=== PATIENT | male | born 1970 | race American Indian/Alaskan Native ===

== ENCOUNTER 2016-09-07 07:45 | Inpatient (IN) | payer MEDICAID ==
[2016-09-07 08:46] LABS: BASO % 0.3 % (0.0-2.0); EOS # 0.4 K/uL (0.0-0.7); EOS % 3.3 % (0.0-4.0); HEMATOCRIT 34.7 % (35.0-51.0); LYMPH # 2.8 K/uL (1.0-4.3); MEAN CELL VOLUME 91.2 fl (80.0-94.0); MEAN CORPUSCULAR HEMOGLOBIN 29.9 pg (27.0-31.0); MEAN CORPUSCULAR HGB CONC 32.8 g/dL (33.0-37.0); MEAN PLATELET VOLUME 9.1 fl (7.2-11.7); MONO # 1.6 K/uL (0.0-0.8); MONO % 12.4 % (0.0-10.0); NEUT # 7.8 K/uL (1.8-7.0); NRBC % 0.1 % (0.0-0.0); RED CELL DISTRIBUTION WIDTH 13.1 % (11.5-14.5); WHITE BLOOD COUNT 12.6 K/uL (4.8-10.8)
[2016-09-07 08:54] LABS: CALCIUM 8.9 mg/dL (8.4-10.2); POTASSIUM 3.3 MMOL/L (3.6-5.0)
--- NOTE | 2016-09-07 08:56 | ED PDOC ---
HPI: Chest Pain Time Seen by Provider: 09/07/16 08:08 Chief Complaint (Nursing): Chest Pain Chief Complaint (Provider): Chest Pain History Per: Patient History/Exam Limitations: no limitations Onset/Duration Of Symptoms: Days (3 days), Intermittent Episodes (initially intermittent, constant sine yesterday) Current Symptoms Are (Timing): Still Present Severity: Moderate Associated Symptoms: Dyspnea. denies: Diaphoresis, Other (denies fever, cough) Exacerbating Factors: Movement Additional Complaint(s): Nader Pedraza is a 46 year old male, with a past medical history of hypertension, who presents to the emergency department for the evaluation of chest pain, that was initially intermittent, but has been constant since yesterday, that the patient has been experiencing for the past 3 days. Exacerbating factor includes ambulation. Associated shortness of breath is persistent with chest pain. Denies a fever, cough, or chills. PMD: none specified Past Medical History Reviewed: Historical Data, Nursing Documentation, Vital Signs Vital Signs: Last Vital Signs Temp 98.0 F 09/07/16 10:18 Pulse 78 09/07/16 10:18 Resp 16 09/07/16 10:18 BP 142/81 09/07/16 10:18 Pulse Ox 100 09/07/16 10:18 - Medical History PMH: HTN - Surgical History Surgical History: No Surg Hx - Family History Family History: States: No Known Family Hx - Social History Current smoker - smoking cessation education provided: No Ex-Smoker (has not smoked in the last 12 months): Yes Alcohol: None Drugs: Denies - Home Medications Home Medications: Ambulatory Orders Medication Instructions Recorded Enalapril Maleate [Vasotec] 25 mg PO DAILY 09/07/16 Metoprolol Tartrate [Lopressor] 100 mg PO DAILY 09/07/16 amLODIPine [Norvasc] 10 mg PO DAILY 09/07/16 hydroCHLOROthiazide [Hydrodiuril] 25 mg PO DAILY 09/07/16 - Allergies Allergies/Adverse Reactions: Allergies Allergy/AdvReac Type Severity Reaction Status Date / Time No Known Allergies Allergy Verified 09/07/16 07:58 Review of Systems ROS Statement: Except As Marked, All Systems Reviewed And Found Negative Constitutional: Negative for: Fever, Chills Cardiovascular: Positive for: Chest Pain Respiratory: Positive for: Shortness of Breath. Negative for: Cough Physical Exam - Reviewed Nursing Documentation Reviewed: Yes Vital Signs Reviewed: Yes - Physical Exam Appears: Positive for: Non-toxic, No Acute Distress Head Exam: Positive for: ATRAUMATIC, NORMOCEPHALIC Skin: Positive for: Normal Color, Warm, Dry Neck: Positive for: Normal, Painless ROM, Supple Cardiovascular/Chest: Positive for: Regular Rate, Rhythm. Negative for: Murmur Respiratory: Positive for: Decreased Breath Sounds (absent breath sounds to right lung), Respiratory Distress. Negative for: Normal Breath Sounds ( tachypnic) Back: Positive for: Normal Inspection. Negative for: L CVA Tenderness, R CVA Tenderness Extremity: Positive for: Normal ROM. Negative for: Tenderness, Swelling Neurologic/Psych: Positive for: Alert, Oriented - Laboratory Results Result Diagrams: 09/07/16 08:15 09/07/16 08:15 - ECG O2 Sat by Pulse Oximetry: 93 (RA) Pulse Ox Interpretation: Normal Medical Decision Making Medical Decision Makin:08 Initial Impression: likely pneumothorax, stable vital signs, not suspicious of tension pneumothorax, likely spontaneous pneumothorax Initial Plan: * Chest X-Ray * Type and Screen * CBC * BMP * BNP * Troponin I * PT/PTT * UA * Urine Drug Screen * Reevaluation 08:55 Provider consulted with ophthalmology surgical technician about pneumothorax. 930AM: Pt. admitted to Dr. Scott 1020AM: Pt.'s xray shows re-expansion of lung, patient tolerated procedure well , VSS. Will go to echo from ER and then telemetry. Scribe Attestation: Documented by Sunny Weller, acting as a scribe for Oj Rosado MD. Provider Scribe Attestation: All medical record entries made by the Scribe were at my direction and personally dictated by me. I have reviewed the chart and agree that the record accurately reflects my personal performance of the history, physical exam, medical decision making, and the department course for this patient. I have also personally directed, reviewed, and agree with the discharge instructions and disposition. Disposition - Clinical Impression Clinical Impression: Pneumothorax, Acute kidney injury - Disposition Disposition Time: 09:30 Condition: STABLE
[2016-09-07 09:04] LABS: PARTIAL THROMBOPLASTIN TIME 40.6 SECONDS (23.3-32.5)
[2016-09-07] MEDS ORDERED: Sodium Chloride 0.9% 1,000 ML IV STA (09:12)
[2016-09-07 09:13] LABS: TROPONIN I 0.018 ng/mL (0.00-0.120)
[2016-09-07 09:53] LABS: RBC URINE 1 /hpf (0-3); URINE BILIRUBIN NEGATIVE (NEGATIVE); URINE BLOOD NEGATIVE (NEGATIVE); URINE COLOR YELLOW (YELLOW); URINE GLUCOSE (UA) >=500 mg/dL (Normal); URINE KETONE NEGATIVE (NEGATIVE); URINE LEUKOCYTE ESTERASE NEG Leu/uL (Negative); URINE PROTEIN NEGATIVE (NEGATIVE); URINE UROBILINOGEN 0.2-1.0 mg/dL (0.2-1.0); WBC URINE < 1 /hpf (0-5)
--- NOTE | 2016-09-07 10:06 | RAD ---
PROCEDURE: CHEST RADIOGRAPH, 1 VIEW HISTORY: PTX likely on R COMPARISON: None available. FINDINGS: LUNGS: The left lung is clear. PLEURA: There is a large right pneumothorax with compressive atelectasis of the right lung. CARDIOVASCULAR: Normal. OSSEOUS STRUCTURES: No significant abnormalities. VISUALIZED UPPER ABDOMEN: Normal. OTHER FINDINGS: None. IMPRESSION: Large right pneumothorax. Clear left lung.
[2016-09-07] MEDS ORDERED: Potassium Chloride 20 mEq ER Tab PO ONE (11:47)
[2016-09-07 11:57] LABS: ABG ALLEN TEST YES; ARTERIAL BLOOD GAS HCO3 25.6 mmol/L (21-28); ARTERIAL BLOOD GAS O2 CAPACITY 16.1 mL/dL (16-24); ARTERIAL BLOOD GAS O2 CONTENT 15.1 ML/dL (15-23); ARTERIAL BLOOD GAS PH 7.38 (7.35-7.45); ARTERIAL BLOOD GAS PO2 62 mm/Hg (80-100); ARTERIAL BLOOD HGB O2 SAT 89.6 % (95.0-98.0); HHB 5.7 % (0.0-5.0); METHEMOGLOBIN 1.7 % (0.0-3.0)
--- NOTE | 2016-09-07 12:11 | RAD ---
HISTORY: s/p chest tube placement COMPARISON: 09/07/2016 at 8:40 a.m. FINDINGS: There is interval placement of right chest tube with its tip in the medial apex. LUNGS: There is interval re-expansion of the right lung with consolidation in most of the right lung. The left lung is clear. PLEURA: No significant pleural effusion identified. No definite evidence of right pneumothorax. CARDIOVASCULAR: Normal. OSSEOUS STRUCTURES: No significant abnormalities. VISUALIZED UPPER ABDOMEN: Normal. OTHER FINDINGS: None. IMPRESSION: 1. Status post right chest tube placement, no definite evidence of residual pneumothorax. 2. Interval re-expansion of right lung which demonstrates diffuse consolidation.
[2016-09-07] MEDS ORDERED: Tuberculin 5 Units/0.1 ml Inj ID ONE (12:12)
[2016-09-07 12:14] LABS: ALB/GLOB RATIO 1.2 (1.0-2.1); BILIRUBIN,TOTAL 0.2 mg/dl (0.2-1.3); TOTAL PROTEIN 6.9 G/DL (6.3-8.2)
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
[2016-09-07] MEDS ORDERED: Sodium Chloride 3% for Inhalation 4 ML VIAL.NEB IH PRN (12:22)
--- NOTE | 2016-09-07 12:29 | CARD ---
APPROVED REPORT EXAM: Two-dimensional and M-mode echocardiogram with Doppler and color Doppler. Other Information Quality : GoodRhythm : NSR Technically limited study due to PT HAS CHEST TUBES INDICATION Chest Pain 2D DIMENSIONS IVSd1.41 (0.7-1.1cm)LVDd4.05 (3.9-5.9cm) LVOT Diameter2.15 (1.8-2.4cm)PWd1.19 (0.7-1.1cm) IVSs1.55 (0.8-1.2cm)LVDs2.30 (2.5-4.0cm) FS (%) 43.2 %PWs2.05 (0.8-1.2cm) M-Mode DIMENSIONS Left Atrium (MM)3.82 (2.5-4.0cm)IVSd1.29 (0.7-1.1cm) Aortic Root3.06 (2.2-3.7cm)LVDd4.24 (4.0-5.6cm) Aortic Cusp Exc.1.94 (1.5-2.0cm)PWd1.38 (0.7-1.1cm) IVSs1.79 cmFS (%) 47 % LVDs2.26 (2.0-3.8cm)PWs2.26 cm Mitral Valve MV E Mswwiwle93.8cm/sMV DECEL [id number] A Gfcivdmi87.1cm/s MV [id number]/A ratio1.3MVA (PHT)3.36cm2 TDI Lateral E' Peak V13.44cm/sMedial E' Peak V7.66cm/sE/Lateral E'5.7 E/Medial E'10.0 Tricuspid Valve TR Peak [id number]/sRAP [id number] Peak Gr.25mmHg [id number] LEFT VENTRICLE The left ventricle is normal size. There is mild concentric left ventricular hypertrophy. Left ventricle systolic function is normal. The Ejection Fraction is 65-70%. There is normal LV segmental wall motion. The left ventricular diastolic function is normal. RIGHT VENTRICLE The right ventricle is normal size. There is normal right ventricular wall thickness. The right ventricular systolic function is normal. ATRIA The left atrium size is normal. The right atrium size is normal. AORTIC VALVE The aortic valve is normal in structure and function. No aortic regurgitation is present. There is no aortic valvular stenosis. MITRAL VALVE The mitral valve is normal in structure and function. There is no evidence of mitral valve prolapse. There is no mitral valve stenosis. There is no mitral valve regurgitation noted. TRICUSPID VALVE The tricuspid valve is normal in structure. There is mild tricuspid regurgitation. Right ventricular systolic pressure is estimated at 36 mmHg. There is mild pulmonary hypertension. PULMONIC VALVE The pulmonary valve is normal in structure and function. There is no pulmonic valvular regurgitation. GREAT VESSELS The aortic root is normal in size. The IVC was not visualized. PERICARDIAL EFFUSION The pericardium appears normal. <Conclusion> The left ventricle is normal size. There is mild concentric left ventricular hypertrophy. There is normal LV segmental wall motion. Left ventricle systolic function is normal. The Ejection Fraction is 65-70%. The left ventricular diastolic function is normal.
--- NOTE | 2016-09-07 13:23 | CT ---
PROCEDURE: CT Chest without contrast HISTORY: Spontaneous pneumothorax COMPARISON: Plain radiographs performed earlier the same day. TECHNIQUE: Contiguous axial images were obtained through the chest without intravenous contrast enhancement. Sagittal and coronal reconstructions were performed. Radiation dose (DLP): 552.33 mGy-cm. This CT exam was performed using one or more of the following dose reduction techniques: Automated exposure control, adjustment of the mA and/or kV according to patient size, and/or use of iterative reconstruction technique. FINDINGS: LUNGS: There is interval placement of right chest tube with its tip in the medial apex. There is interval near complete resolution of the large right pneumothorax with residual minimal apical pneumothorax. There are bilateral apical subpleural blebs, larger in the right anterior apex. There is ground-glass attenuation in the right upper lobe and middle lobe and to a lesser extent in the lower lobes with interlobular septal thickening. There is also more confluent superimposed airspace disease in the posterior segment of the right upper lobe and in the right lower lobe. There is bilateral lower lobe subsegmental atelectasis. There is no consolidation in the left lung. MEDIASTINUM: The aorta is normal in caliber. The heart is normal in size. There is no pericardial effusion. There are no enlarged mediastinal lymph nodes. Subcentimeter mediastinal lymph nodes are likely reactive in etiology. PLEURA: There is trace right pleural effusion. No large left pleural effusion. BONES: No fracture. No destructive lesion. The visualized bones are within normal limits for the patient's age. UPPER ABDOMEN: Grossly unremarkable. OTHER FINDINGS: None. IMPRESSION: 1. Interval placement of right chest tube and resolution of large right pneumothorax with residual small apical pneumothorax. The tip of the chest tube is positioned in the medial apex. Biapical subpleural blebs, larger on the right. 2. Interval re-expansion of the right lung with diffuse ground-glass attenuation and interlobular septal thickening with superimposed confluent airspace disease in the posterior segment of the right upper lobe and in the right lower lobe. Findings could be related to pneumonia superimposed on nonspecific infection/ inflammation, reexpansion alveolar pulmonary edema or aspiration pneumonitis. Short-term interval follow-up after medical management is advised.
[2016-09-07] MEDS: Sodium Chloride 0.9% 1,000 ML IV SCH ×2 (13:40→22:16)
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
[2016-09-07] MEDS ORDERED: Pneumococcal 23-Valent Vaccine IM ONE (16:44)
[2016-09-07] MEDS: Ciprofloxacin 200mg/100ml D5W 100 ML IVPB SCH (22:15)
[2016-09-08 07:02] LABS: HEMATOCRIT 34.7 % (35.0-51.0); MEAN CELL VOLUME 92.2 fl (80.0-94.0); MEAN CORPUSCULAR HEMOGLOBIN 29.6 pg (27.0-31.0); MEAN CORPUSCULAR HGB CONC 32.1 g/dL (33.0-37.0); RED CELL DISTRIBUTION WIDTH 13.1 % (11.5-14.5); WHITE BLOOD COUNT 17.9 K/uL (4.8-10.8)
[2016-09-08 07:55] LABS: ALB/GLOB RATIO 1.1 (1.0-2.1); ALKALINE PHOSPHATASE 69 U/L (38-126); ALT/SGPT 26 U/L (21-72); AST/SGOT 113 U/L (17-59); BILIRUBIN,TOTAL 0.7 mg/dl (0.2-1.3); BLOOD UREA NITROGEN 20 mg/dl (9-20); CALCIUM 8.3 mg/dL (8.4-10.2); CARBON DIOXIDE 25 mmol/L (22-30); CHLORIDE 106 mmol/L (98-107); GFR AFRICAN-AMERICAN 56; GLUCOSE,RANDOM 89 mg/dL (75-110); POTASSIUM 4.1 MMOL/L (3.6-5.0); SODIUM 139 mmol/l (132-148); TOTAL PROTEIN 5.8 G/DL (6.3-8.2)
[2016-09-08] MEDS: Ciprofloxacin 200mg/100ml D5W 100 ML IVPB SCH ×2 (09:11→21:58)
--- NOTE | 2016-09-08 14:04 | CP.PCM.PN ---
Subjective - Date & Time of Evaluation Date of Evaluation: 09/08/16 Time of Evaluation: 10:50 - Subjective Subjective: S/P Pneumothorax. No A/D, minimal R chest wall pain. Objective - Vital Signs/Intake and Output Vital Signs (last 24 hours): Temp Pulse Resp BP Pulse Ox 98.4 F 57 L 14 127/69 100 09/08/16 11:45 09/08/16 11:45 09/08/16 11:45 09/08/16 11:45 09/08/16 11:45 Intake and Output: 09/08/16 09/08/16 06:59 18:59 Intake Total 1200 Output Total 1210 800 Balance -10 -800 - Medications Medications: Current Medications Amlodipine Besylate (Norvasc) 10 mg PO DAILY [facility] Last Admin: 09/08/16 09:16 Dose: 10 mg Enalapril Maleate (Vasotec) 20 mg PO DAILY [facility] Last Admin: 09/08/16 09:15 Dose: 20 mg Hydrochlorothiazide (Hydrodiuril) 25 mg PO DAILY [facility] Last Admin: 09/08/16 09:15 Dose: 25 mg Ciprofloxacin (Cipro 200mg/100ml D5w) 100 mls @ 100 mls/hr IVPB Q12 [facility] Last Admin: 09/08/16 09:11 Dose: 100 mls/hr Vancomycin HCl 1 gm/ Sodium (Chloride) 250 mls @ 166.667 mls/hr IVPB DAILY [facility] Last Admin: 09/08/16 09:59 Dose: 166.667 mls/hr Piperacillin Sod/Tazobactam (Sod 2.25 gm/ Sodium Chloride) 100 mls @ 100 mls/ hr IVPB Q6 [facility] Last Admin: 09/08/16 11:22 Dose: 100 mls/hr Metoprolol Tartrate (Lopressor) 100 mg PO DAILY [facility] Last Admin: 09/08/16 09:15 Dose: 100 mg Morphine Sulfate (Morphine) 4 mg IVP Q3H PRN PRN Reason: Pain, moderate (4-7) Last Admin: 09/08/16 09:12 Dose: 4 mg - Labs Labs: 09/08/16 05:00 09/08/16 05:00 PT 16.0 SECONDS (9.6-11.2) H 09/07/16 08:15 INR 1.54 (0.92-1.08) H 09/07/16 08:15 APTT 40.6 SECONDS (23.3-32.5) H 09/07/16 08:15 - Constitutional Appears: No Acute Distress - Head Exam Head Exam: NORMAL INSPECTION - Eye Exam Eye Exam: PERRL - ENT Exam ENT Exam: Normal Oropharynx - Neck Exam Neck Exam: Normal Inspection - Respiratory Exam Respiratory Exam: Decreased Breath Sounds (R base) Additional comments: R side chest tube - Cardiovascular Exam Cardiovascular Exam: REGULAR RHYTHM - GI/Abdominal Exam GI & Abdominal Exam: Soft, Normal Bowel Sounds - Extremities Exam Extremities Exam: Normal Inspection - Back Exam Back Exam: NORMAL INSPECTION - Neurological Exam Neurological Exam: Alert, Oriented x3. absent: Motor Sensory Deficit - Skin Skin Exam: Warm Assessment and Plan (1) Primary spontaneous pneumothorax Status: Acute (2) PNA (pneumonia) Status: Acute (3) HTN (hypertension) Status: Chronic - Assessment and Plan (Free Text) Plan: Continue NC 2-1/2 L/m, continue Morphine, Lopressor, vasotec, Norvasc, Zosyn, Vanco and rest of Tx
[2016-09-08] MEDS: Sodium Chloride 0.9% 1,000 ML IV SCH (14:44)
--- NOTE | 2016-09-08 16:35 | CP.PCM.PN ---
Subjective - Date & Time of Evaluation Date of Evaluation: 09/08/16 Time of Evaluation: 10:10 - Subjective Subjective: CT Surgery Pt S&E, YULYO. Sats @ 100 on 4L NC. Says he is breathing much better. C/O pain at CT site. Objective - Vital Signs/Intake and Output Vital Signs (last 24 hours): Temp Pulse Resp BP Pulse Ox 98.4 F 72 22 100/54 L 97 09/08/16 11:45 09/08/16 14:05 09/08/16 14:05 09/08/16 14:05 09/08/16 14:05 Intake and Output: 09/08/16 09/08/16 06:59 18:59 Intake Total 1200 220 Output Total 1210 800 Balance -10 -580 - Medications Medications: Current Medications Amlodipine Besylate (Norvasc) 10 mg PO DAILY [facility] Last Admin: 09/08/16 09:16 Dose: 10 mg Enalapril Maleate (Vasotec) 20 mg PO DAILY [facility] Last Admin: 09/08/16 09:15 Dose: 20 mg Hydrochlorothiazide (Hydrodiuril) 25 mg PO DAILY [facility] Last Admin: 09/08/16 09:15 Dose: 25 mg Ciprofloxacin (Cipro 200mg/100ml D5w) 100 mls @ 100 mls/hr IVPB Q12 [facility] Last Admin: 09/08/16 09:11 Dose: 100 mls/hr Vancomycin HCl 1 gm/ Sodium (Chloride) 250 mls @ 166.667 mls/hr IVPB DAILY [facility] Last Admin: 09/08/16 09:59 Dose: 166.667 mls/hr Piperacillin Sod/Tazobactam (Sod 2.25 gm/ Sodium Chloride) 100 mls @ 100 mls/ hr IVPB Q6 [facility] Last Admin: 09/08/16 15:39 Dose: 100 mls/hr Metoprolol Tartrate (Lopressor) 50 mg PO DAILY [facility] Morphine Sulfate (Morphine) 4 mg IVP Q3H PRN PRN Reason: Pain, moderate (4-7) Last Admin: 09/08/16 14:55 Dose: 4 mg - Labs Labs: 09/08/16 05:00 09/08/16 05:00 PT 16.0 SECONDS (9.6-11.2) H 09/07/16 08:15 INR 1.54 (0.92-1.08) H 09/07/16 08:15 APTT 40.6 SECONDS (23.3-32.5) H 09/07/16 08:15 - Constitutional Appears: No Acute Distress, Chronically Ill - Head Exam Head Exam: ATRAUMATIC, NORMOCEPHALIC - Eye Exam Eye Exam: EOMI. absent: Scleral icterus - Respiratory Exam Respiratory Exam: NORMAL BREATHING PATTERN. absent: Respiratory Distress Additional comments: CT in place draining serous fluid - Cardiovascular Exam Cardiovascular Exam: RRR, +S1, +S2 - GI/Abdominal Exam GI & Abdominal Exam: Soft. absent: Distended, Tenderness - Neurological Exam Neurological Exam: Alert, Awake - Skin Skin Exam: Dry, Warm Assessment and Plan - Assessment and Plan (Free Text) Assessment: 46M with R pneumothorax s/p chest tube placement Plan: Daily CXR Monitor output from CT Consider CT Chest with contrast on saturday D/W Dr. Doc Shaikh PGY3
--- NOTE | 2016-09-09 08:40 | CP.PCM.PN ---
Subjective - Date & Time of Evaluation Date of Evaluation: 09/09/16 Time of Evaluation: 08:38 - Subjective Subjective: Thoracic Surgery - Dr. Roach Pt S&E. NATI. Pt has mild pain from the R chest tube, otherwise denies any complaints. He has no SOB, F/C, N/V. He has been OOB ambulating within the room, working with incentive spirometer. R CT to wall suction w/ ~200cc serous drainage. no airleak. Objective - Vital Signs/Intake and Output Vital Signs (last 24 hours): Temp Pulse Resp BP Pulse Ox 98.3 F 65 20 157/74 H 98 09/09/16 08:13 09/09/16 08:13 09/09/16 08:13 09/09/16 08:13 09/09/16 08:13 - Medications Medications: Current Medications Amlodipine Besylate (Norvasc) 10 mg PO DAILY [facility] Last Admin: 09/08/16 09:16 Dose: 10 mg Enalapril Maleate (Vasotec) 20 mg PO DAILY [facility] Last Admin: 09/08/16 09:15 Dose: 20 mg Hydrochlorothiazide (Hydrodiuril) 25 mg PO DAILY [facility] Last Admin: 09/08/16 09:15 Dose: 25 mg Ciprofloxacin (Cipro 200mg/100ml D5w) 100 mls @ 100 mls/hr IVPB Q12 [facility] Last Admin: 09/08/16 21:58 Dose: 100 mls/hr Vancomycin HCl 1 gm/ Sodium (Chloride) 250 mls @ 166.667 mls/hr IVPB DAILY [facility] Last Admin: 09/08/16 09:59 Dose: 166.667 mls/hr Piperacillin Sod/Tazobactam (Sod 2.25 gm/ Sodium Chloride) 100 mls @ 100 mls/ hr IVPB Q6 [facility] Last Admin: 09/09/16 04:12 Dose: 100 mls/hr Metoprolol Tartrate (Lopressor) 50 mg PO DAILY [facility] Morphine Sulfate (Morphine) 4 mg IVP Q3H PRN PRN Reason: Pain, moderate (4-7) Last Admin: 09/09/16 03:06 Dose: 4 mg - Labs Labs: 09/08/16 05:00 09/08/16 05:00 PT 16.0 SECONDS (9.6-11.2) H 09/07/16 08:15 INR 1.54 (0.92-1.08) H 09/07/16 08:15 APTT 40.6 SECONDS (23.3-32.5) H 09/07/16 08:15 - Constitutional Appears: No Acute Distress - Head Exam Head Exam: ATRAUMATIC, NORMAL INSPECTION, NORMOCEPHALIC - Respiratory Exam Respiratory Exam: NORMAL BREATHING PATTERN. absent: Respiratory Distress Additional comments: R CT in place to low cont. suction, no airleak - Cardiovascular Exam Cardiovascular Exam: REGULAR RHYTHM - Neurological Exam Neurological Exam: Alert, Oriented x3 - Psychiatric Exam Psychiatric exam: Normal Affect, Normal Mood - Skin Skin Exam: Dry, Intact Assessment and Plan - Assessment and Plan (Free Text) Assessment: 46M with R pneumothorax s/p chest tube placement Plan: F/U CXR Continue CT to low continuous suction F/U Labs, Cr Poss. CT Chest w/ contrast on Saturday D/W Dr. Doc Lima PGY2
[2016-09-09] MEDS: Ciprofloxacin 200mg/100ml D5W 100 ML IVPB SCH ×2 (09:49→20:27)
--- NOTE | 2016-09-09 09:50 | RAD ---
PROCEDURE: CHEST RADIOGRAPH, 1 VIEW HISTORY: Comparison COMPARISON: None available. FINDINGS: LUNGS: Bilateral interstitial infiltrates.. PLEURA: No pneumothorax or pleural fluid seen. CARDIOVASCULAR: Normal. OSSEOUS STRUCTURES: No significant abnormalities. VISUALIZED UPPER ABDOMEN: Normal. OTHER FINDINGS: None. IMPRESSION: Bilateral interstitial infiltrates..
--- NOTE | 2016-09-09 16:43 | CP.PCM.PN ---
Subjective - Date & Time of Evaluation Date of Evaluation: 09/09/16 Time of Evaluation: 10:30 - Subjective Subjective: F/U R Pneumothorax. No SOB, minimal pain in the area of chest tube insertion, no cough, no chest congestion. Objective - Vital Signs/Intake and Output Vital Signs (last 24 hours): Temp Pulse Resp BP Pulse Ox 98.6 F 57 L 18 134/77 100 09/09/16 16:00 09/09/16 16:00 09/09/16 16:00 09/09/16 16:00 09/09/16 16:00 - Medications Medications: Current Medications Amlodipine Besylate (Norvasc) 10 mg PO DAILY [facility] Last Admin: 09/09/16 09:50 Dose: 10 mg Enalapril Maleate (Vasotec) 20 mg PO DAILY [facility] Last Admin: 09/09/16 09:51 Dose: 20 mg Hydrochlorothiazide (Hydrodiuril) 25 mg PO DAILY [facility] Last Admin: 09/09/16 09:50 Dose: 25 mg Ciprofloxacin (Cipro 200mg/100ml D5w) 100 mls @ 100 mls/hr IVPB Q12 [facility] Last Admin: 09/09/16 09:49 Dose: 100 mls/hr Vancomycin HCl 1 gm/ Sodium (Chloride) 250 mls @ 166.667 mls/hr IVPB DAILY [facility] Last Admin: 09/09/16 09:52 Dose: 166.667 mls/hr Piperacillin Sod/Tazobactam (Sod 2.25 gm/ Sodium Chloride) 100 mls @ 100 mls/ hr IVPB Q6 [facility] Last Admin: 09/09/16 15:21 Dose: 100 mls/hr Metoprolol Tartrate (Lopressor) 50 mg PO DAILY [facility] Last Admin: 09/09/16 09:50 Dose: 50 mg Morphine Sulfate (Morphine) 4 mg IVP Q3H PRN PRN Reason: Pain, moderate (4-7) Last Admin: 09/09/16 15:21 Dose: 4 mg - Labs Labs: 09/08/16 05:00 09/08/16 05:00 PT 16.0 SECONDS (9.6-11.2) H 09/07/16 08:15 INR 1.54 (0.92-1.08) H 09/07/16 08:15 APTT 40.6 SECONDS (23.3-32.5) H 09/07/16 08:15 - Constitutional Appears: No Acute Distress - Head Exam Head Exam: NORMAL INSPECTION - Eye Exam Eye Exam: PERRL - ENT Exam ENT Exam: Normal Oropharynx - Neck Exam Neck Exam: Normal Inspection - Respiratory Exam Respiratory Exam: Decreased Breath Sounds (R base) Additional comments: R chest tube with minimal tenderness in the area. Chest tube drainage 50cc. - GI/Abdominal Exam GI & Abdominal Exam: Soft, Normal Bowel Sounds - Extremities Exam Extremities Exam: Normal Inspection - Back Exam Back Exam: NORMAL INSPECTION - Neurological Exam Neurological Exam: Alert, Oriented x3. absent: Motor Sensory Deficit - Psychiatric Exam Psychiatric exam: Normal Mood - Skin Skin Exam: Warm Assessment and Plan (1) Primary spontaneous pneumothorax Status: Acute (2) PNA (pneumonia) Status: Acute (3) HTN (hypertension) Status: Chronic - Assessment and Plan (Free Text) Plan: Continue Zosyn, Vanco, Morphine, Lopressor, Vasotec, Norvasc and rest of Tx, f/ u ID consult.
[2016-09-10] MEDS: Ciprofloxacin 200mg/100ml D5W 100 ML IVPB SCH (08:38)
--- NOTE | 2016-09-10 09:14 | CP.PCM.PN ---
Subjective - Date & Time of Evaluation Date of Evaluation: 09/10/16 Time of Evaluation: 09:11 - Subjective Subjective: This is a progress note for Dr. Roach- thoracic surgery: Pt [facility]IAN. Pt has mild pain from the R chest tube, otherwise denies any complaints. He has no SOB, F/C, N/V. He has been OOB ambulating within the room, working with incentive spirometer. R CT to wall suction w/ serous drainage. no airleak. Objective - Vital Signs/Intake and Output Vital Signs (last 24 hours): Temp Pulse Resp BP Pulse Ox 98.1 F 66 18 132/75 100 09/10/16 07:54 09/10/16 08:38 09/10/16 07:54 09/10/16 08:38 09/10/16 07:54 - Medications Medications: Current Medications Amlodipine Besylate (Norvasc) 10 mg PO DAILY [facility] Last Admin: 09/10/16 08:37 Dose: 10 mg Enalapril Maleate (Vasotec) 20 mg PO DAILY [facility] Last Admin: 09/10/16 08:37 Dose: 20 mg Hydrochlorothiazide (Hydrodiuril) 25 mg PO DAILY [facility] Last Admin: 09/10/16 08:37 Dose: 25 mg Ciprofloxacin (Cipro 200mg/100ml D5w) 100 mls @ 100 mls/hr IVPB Q12 [facility] Last Admin: 09/10/16 08:38 Dose: 100 mls/hr Vancomycin HCl 1 gm/ Sodium (Chloride) 250 mls @ 166.667 mls/hr IVPB DAILY [facility] Last Admin: 09/10/16 08:46 Dose: 166.667 mls/hr Piperacillin Sod/Tazobactam (Sod 2.25 gm/ Sodium Chloride) 100 mls @ 100 mls/ hr IVPB Q6 [facility] Last Admin: 09/10/16 04:37 Dose: 100 mls/hr Metoprolol Tartrate (Lopressor) 50 mg PO DAILY [facility] Last Admin: 09/10/16 08:38 Dose: 50 mg Morphine Sulfate (Morphine) 4 mg IVP Q3H PRN PRN Reason: Pain, moderate (4-7) Last Admin: 09/09/16 20:37 Dose: 4 mg - Labs Labs: 09/08/16 05:00 09/08/16 05:00 PT 16.0 SECONDS (9.6-11.2) H 09/07/16 08:15 INR 1.54 (0.92-1.08) H 09/07/16 08:15 APTT 40.6 SECONDS (23.3-32.5) H 09/07/16 08:15 - Constitutional Appears: Well, Non-toxic, No Acute Distress - Respiratory Exam Additional comments: R CT in place to low cont. suction, no airleak Assessment and Plan - Assessment and Plan (Free Text) Assessment: 46M with R pneumothorax s/p chest tube placement Plan: F/U CXR Continue CT to low continuous suction F/U Labs, Cr IVF fluids-hydrate today possible CT w/contrast of chest tomorrow, if kidneys are not better tomorrow, will get noncontrast CT D/W Dr. Roach
[2016-09-10 10:17] LABS: HEMATOCRIT 40.7 % (35.0-51.0); MEAN CELL VOLUME 90.8 fl (80.0-94.0); MEAN CORPUSCULAR HEMOGLOBIN 29.9 pg (27.0-31.0); MEAN CORPUSCULAR HGB CONC 32.9 g/dL (33.0-37.0); RED CELL DISTRIBUTION WIDTH 12.7 % (11.5-14.5); WHITE BLOOD COUNT 19.8 K/uL (4.8-10.8)
[2016-09-10 10:52] LABS: POTASSIUM 3.6 MMOL/L (3.6-5.0)
[2016-09-10 10:54] LABS: ALB/GLOB RATIO 1.2 (1.0-2.1); BILIRUBIN,TOTAL 0.9 mg/dl (0.2-1.3); CALCIUM 9.6 mg/dL (8.4-10.2); TOTAL PROTEIN 7.9 G/DL (6.3-8.2)
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
[2016-09-10] MEDS ORDERED: Sodium Chloride 3% for Inhalation 4 ML VIAL.NEB IH PRN (11:52)
[2016-09-10] MEDS: Moxifloxacin IV 400mg/250ml NS 400 MG/250 ML BAG IVPB SCH (13:05)
[2016-09-10] MEDS: Sodium Chloride 0.9% 500 ML IV SCH ×3 (13:45→23:00)
--- NOTE | 2016-09-10 15:04 | RAD ---
PROCEDURE: CHEST RADIOGRAPH, 1 VIEW HISTORY: Comparison COMPARISON: 09/08/2016 FINDINGS: LUNGS: Clear. PLEURA: No pneumothorax or pleural fluid seen. CARDIOVASCULAR: Normal. OSSEOUS STRUCTURES: No significant abnormalities. VISUALIZED UPPER ABDOMEN: Normal. OTHER FINDINGS: Right chest tube in place. IMPRESSION: No evidence of pneumothorax. Right chest tube in place.
--- NOTE | 2016-09-10 16:13 | CP.PCM.PN ---
Subjective - Date & Time of Evaluation Date of Evaluation: 09/10/16 Time of Evaluation: 10:00 - Subjective Subjective: F/U R Pneumothorax. No SOB, breathing well, no chest congestion, minimal pain in R chest insertion tube area. Objective - Vital Signs/Intake and Output Vital Signs (last 24 hours): Temp Pulse Resp BP Pulse Ox 98.2 F 63 20 146/74 99 09/10/16 15:42 09/10/16 15:42 09/10/16 15:42 09/10/16 15:42 09/10/16 15:42 - Medications Medications: Current Medications Amlodipine Besylate (Norvasc) 10 mg PO DAILY [facility] Last Admin: 09/10/16 08:37 Dose: 10 mg Enalapril Maleate (Vasotec) 20 mg PO DAILY [facility] Last Admin: 09/10/16 08:37 Dose: 20 mg Hydrochlorothiazide (Hydrodiuril) 25 mg PO DAILY [facility] Last Admin: 09/10/16 08:37 Dose: 25 mg Vancomycin HCl 1 gm/ Sodium (Chloride) 250 mls @ 166.667 mls/hr IVPB DAILY [facility] Last Admin: 09/10/16 08:46 Dose: 166.667 mls/hr Piperacillin Sod/Tazobactam (Sod 2.25 gm/ Sodium Chloride) 100 mls @ 100 mls/ hr IVPB Q6 [facility] Last Admin: 09/10/16 09:39 Dose: 100 mls/hr Moxifloxacin HCl (Avelox Iv 400mg/250ml Ns) 400 mg in 250 mls @ 250 mls/hr IVPB DAILY [facility] Last Admin: 09/10/16 13:05 Dose: 250 mls/hr Sodium Chloride (Sodium Chloride 0.9%) 500 mls @ 120 mls/hr IV .Q4H10M [facility] Last Admin: 09/10/16 13:45 Dose: 120 mls/hr Metoprolol Tartrate (Lopressor) 50 mg PO DAILY [facility] Last Admin: 09/10/16 08:38 Dose: 50 mg Morphine Sulfate (Morphine) 4 mg IVP Q3H PRN PRN Reason: Pain, moderate (4-7) Last Admin: 09/10/16 11:42 Dose: 4 mg - Labs Labs: 09/10/16 09:55 09/10/16 09:55 PT 16.0 SECONDS (9.6-11.2) H 09/07/16 08:15 INR 1.54 (0.92-1.08) H 09/07/16 08:15 APTT 40.6 SECONDS (23.3-32.5) H 09/07/16 08:15 - Constitutional Appears: No Acute Distress - Head Exam Head Exam: NORMAL INSPECTION - Eye Exam Eye Exam: PERRL - ENT Exam ENT Exam: Normal Oropharynx - Neck Exam Neck Exam: Normal Inspection - Respiratory Exam Respiratory Exam: Decreased Breath Sounds (R lung), Rhonchi (scattered) Additional comments: Crackles R base - Cardiovascular Exam Cardiovascular Exam: REGULAR RHYTHM - GI/Abdominal Exam GI & Abdominal Exam: Soft, Normal Bowel Sounds - Extremities Exam Extremities Exam: Normal Inspection - Back Exam Back Exam: NORMAL INSPECTION - Neurological Exam Neurological Exam: Alert, Oriented x3. absent: Motor Sensory Deficit - Psychiatric Exam Psychiatric exam: Normal Mood - Skin Skin Exam: Warm Assessment and Plan (1) Primary spontaneous pneumothorax Status: Acute (2) PNA (pneumonia) Status: Acute (3) HTN (hypertension) Status: Chronic - Assessment and Plan (Free Text) Plan: WBC increased 19.8 PPD (-), f/u by ID consult.
[2016-09-11] MEDS: Sodium Chloride 0.9% 1,000 ML IV SCH ×2 (06:49→08:26)
--- NOTE | 2016-09-11 07:40 | CP.PCM.PN ---
Subjective - Date & Time of Evaluation Date of Evaluation: 09/11/16 Time of Evaluation: 07:38 - Subjective Subjective: Thoracic Surgery - Dr. Roach Pt S&E. NATI. Pt has mild chest pain at site of tube, otherwise no complaints. He is working with incentive spirometer. R CT to waterseal this morning, no airleak, dressing C/D/I. Objective - Vital Signs/Intake and Output Vital Signs (last 24 hours): Temp Pulse Resp BP Pulse Ox 98.7 F 50 L 19 127/71 96 09/11/16 04:57 09/11/16 04:57 09/11/16 04:57 09/11/16 04:57 09/11/16 04:57 - Medications Medications: Current Medications Amlodipine Besylate (Norvasc) 10 mg PO DAILY [facility] Last Admin: 09/10/16 08:37 Dose: 10 mg Enalapril Maleate (Vasotec) 20 mg PO DAILY [facility] Last Admin: 09/10/16 08:37 Dose: 20 mg Hydrochlorothiazide (Hydrodiuril) 25 mg PO DAILY [facility] Last Admin: 09/10/16 08:37 Dose: 25 mg Vancomycin HCl 1 gm/ Sodium (Chloride) 250 mls @ 166.667 mls/hr IVPB DAILY [facility] Last Admin: 09/10/16 08:46 Dose: 166.667 mls/hr Piperacillin Sod/Tazobactam (Sod 2.25 gm/ Sodium Chloride) 100 mls @ 100 mls/ hr IVPB Q6 [facility] Last Admin: 09/11/16 03:25 Dose: 100 mls/hr Moxifloxacin HCl (Avelox Iv 400mg/250ml Ns) 400 mg in 250 mls @ 250 mls/hr IVPB DAILY [facility] Last Admin: 09/10/16 13:05 Dose: 250 mls/hr Sodium Chloride (Sodium Chloride 0.9%) 500 mls @ 120 mls/hr IV .Q4H10M [facility] Last Admin: 09/10/16 23:00 Dose: 120 mls/hr Sodium Chloride (Sodium Chloride 0.9%) 1,000 mls @ 1,000 mls/hr IV .Q1H [facility] Stop: 09/11/16 08:44 Last Admin: 09/11/16 06:49 Dose: 1,000 mls/hr Metoprolol Tartrate (Lopressor) 50 mg PO DAILY [facility] Last Admin: 09/10/16 08:38 Dose: 50 mg Morphine Sulfate (Morphine) 4 mg IVP Q3H PRN PRN Reason: Pain, moderate (4-7) Last Admin: 09/11/16 03:15 Dose: 4 mg - Labs Labs: 09/10/16 09:55 09/10/16 09:55 PT 16.0 SECONDS (9.6-11.2) H 09/07/16 08:15 INR 1.54 (0.92-1.08) H 09/07/16 08:15 APTT 40.6 SECONDS (23.3-32.5) H 09/07/16 08:15 - Constitutional Appears: No Acute Distress - Head Exam Head Exam: ATRAUMATIC, NORMAL INSPECTION, NORMOCEPHALIC - Eye Exam Eye Exam: Normal appearance - Respiratory Exam Respiratory Exam: NORMAL BREATHING PATTERN. absent: Respiratory Distress Additional comments: R CT to waterseal - Cardiovascular Exam Cardiovascular Exam: REGULAR RHYTHM - Neurological Exam Neurological Exam: Alert, Oriented x3 - Psychiatric Exam Psychiatric exam: Normal Affect, Normal Mood - Skin Skin Exam: Dry, Intact Assessment and Plan - Assessment and Plan (Free Text) Assessment: 46 yo M w/ R spontaneous PTX, s/p Chest tube insertion -Continue CT to waterseal -F/U Repeat CT chest -IVF Boluses -Pain control -F/U Labs/Cr -Encourage OOB/Ambulation and working with Incentive Spirometer Yakov Lima PGY2
[2016-09-11] MEDS: Sodium Chloride 0.9% 500 ML IV SCH ×2 (10:39→14:40)
--- NOTE | 2016-09-11 12:30 | CP.PCM.PN ---
Subjective - Date & Time of Evaluation Date of Evaluation: 09/11/16 Time of Evaluation: 12:28 - Subjective Subjective: Pt s/e. chest tube: No drainge. No air leak. Negative intrapleural pressure. CT chest: very small pneumo. a/p; Small resudual pneumo. Continue chest tube for sveral more days. Objective - Vital Signs/Intake and Output Vital Signs (last 24 hours): Temp Pulse Resp BP Pulse Ox 98.2 F 73 18 156/61 H 99 09/11/16 12:14 09/11/16 12:14 09/11/16 12:14 09/11/16 12:14 09/11/16 12:14 - Medications Medications: Current Medications Amlodipine Besylate (Norvasc) 10 mg PO DAILY [facility] Last Admin: 09/11/16 09:06 Dose: 10 mg Enalapril Maleate (Vasotec) 20 mg PO DAILY [facility] Last Admin: 09/11/16 09:07 Dose: 20 mg Hydrochlorothiazide (Hydrodiuril) 25 mg PO DAILY [facility] Last Admin: 09/11/16 09:07 Dose: 25 mg Vancomycin HCl 1 gm/ Sodium (Chloride) 250 mls @ 166.667 mls/hr IVPB DAILY [facility] Last Admin: 09/10/16 08:46 Dose: 166.667 mls/hr Piperacillin Sod/Tazobactam (Sod 2.25 gm/ Sodium Chloride) 100 mls @ 100 mls/ hr IVPB Q6 [facility] Last Admin: 09/11/16 10:09 Dose: 100 mls/hr Moxifloxacin HCl (Avelox Iv 400mg/250ml Ns) 400 mg in 250 mls @ 250 mls/hr IVPB DAILY [facility] Last Admin: 09/10/16 13:05 Dose: 250 mls/hr Sodium Chloride (Sodium Chloride 0.9%) 500 mls @ 120 mls/hr IV .Q4H10M [facility] Last Admin: 09/11/16 10:39 Dose: Not Given Metoprolol Tartrate (Lopressor) 50 mg PO DAILY [facility] Last Admin: 09/11/16 09:08 Dose: Not Given Morphine Sulfate (Morphine) 4 mg IVP Q3H PRN PRN Reason: Pain, moderate (4-7) Last Admin: 09/11/16 03:15 Dose: 4 mg - Labs Labs: 09/10/16 09:55 09/10/16 09:55 PT 16.0 SECONDS (9.6-11.2) H 09/07/16 08:15 INR 1.54 (0.92-1.08) H 09/07/16 08:15 APTT 40.6 SECONDS (23.3-32.5) H 09/07/16 08:15
[2016-09-11] MEDS: Moxifloxacin IV 400mg/250ml NS 400 MG/250 ML BAG IVPB SCH (13:08)
--- NOTE | 2016-09-11 14:17 | CP.PCM.PN ---
Subjective - Date & Time of Evaluation Date of Evaluation: 09/11/16 Time of Evaluation: 10:05 - Subjective Subjective: F/U L Pneumothorax. Pt with no SOB, no A/D, ambulating. Objective - Vital Signs/Intake and Output Vital Signs (last 24 hours): Temp Pulse Resp BP Pulse Ox 98.2 F 73 18 156/61 H 99 09/11/16 12:14 09/11/16 12:14 09/11/16 12:14 09/11/16 12:14 09/11/16 12:14 - Medications Medications: Current Medications Amlodipine Besylate (Norvasc) 10 mg PO DAILY [facility] Last Admin: 09/11/16 09:06 Dose: 10 mg Enalapril Maleate (Vasotec) 20 mg PO DAILY [facility] Last Admin: 09/11/16 09:07 Dose: 20 mg Hydrochlorothiazide (Hydrodiuril) 25 mg PO DAILY [facility] Last Admin: 09/11/16 09:07 Dose: 25 mg Vancomycin HCl 1 gm/ Sodium (Chloride) 250 mls @ 166.667 mls/hr IVPB DAILY [facility] Last Admin: 09/10/16 08:46 Dose: 166.667 mls/hr Piperacillin Sod/Tazobactam (Sod 2.25 gm/ Sodium Chloride) 100 mls @ 100 mls/ hr IVPB Q6 [facility] Last Admin: 09/11/16 10:09 Dose: 100 mls/hr Moxifloxacin HCl (Avelox Iv 400mg/250ml Ns) 400 mg in 250 mls @ 250 mls/hr IVPB DAILY [facility] Last Admin: 09/11/16 13:08 Dose: 250 mls/hr Sodium Chloride (Sodium Chloride 0.9%) 500 mls @ 120 mls/hr IV .Q4H10M [facility] Last Admin: 09/11/16 10:39 Dose: Not Given Metoprolol Tartrate (Lopressor) 50 mg PO DAILY [facility] Last Admin: 09/11/16 09:08 Dose: Not Given Morphine Sulfate (Morphine) 4 mg IVP Q3H PRN PRN Reason: Pain, moderate (4-7) Last Admin: 09/11/16 13:10 Dose: 4 mg - Labs Labs: 09/10/16 09:55 09/10/16 09:55 PT 16.0 SECONDS (9.6-11.2) H 09/07/16 08:15 INR 1.54 (0.92-1.08) H 09/07/16 08:15 APTT 40.6 SECONDS (23.3-32.5) H 09/07/16 08:15 - Constitutional Appears: No Acute Distress - Head Exam Head Exam: NORMAL INSPECTION - Eye Exam Eye Exam: PERRL - ENT Exam ENT Exam: Normal Oropharynx - Neck Exam Neck Exam: Normal Inspection - Respiratory Exam Respiratory Exam: Decreased Breath Sounds (R lung), Rhonchi (scattered) Additional comments: R CT to waterseal - Cardiovascular Exam Cardiovascular Exam: REGULAR RHYTHM - GI/Abdominal Exam GI & Abdominal Exam: Soft, Normal Bowel Sounds - Extremities Exam Extremities Exam: Normal Inspection - Back Exam Back Exam: NORMAL INSPECTION - Neurological Exam Neurological Exam: Alert, Oriented x3. absent: Motor Sensory Deficit - Psychiatric Exam Psychiatric exam: Normal Mood - Skin Skin Exam: Warm Assessment and Plan (1) Primary spontaneous pneumothorax Status: Acute (2) PNA (pneumonia) Status: Acute (3) HTN (hypertension) Status: Chronic - Assessment and Plan (Free Text) Plan: Srinivasan CT =R lung infiltrate improved. F/U [employer] Continue Zyvox, Zosyn, Morphine and rest of Tx.
[2016-09-11 14:58] LABS: HEMATOCRIT 38.2 % (35.0-51.0); MEAN CELL VOLUME 91.4 fl (80.0-94.0); MEAN CORPUSCULAR HEMOGLOBIN 29.2 pg (27.0-31.0); MEAN CORPUSCULAR HGB CONC 31.9 g/dL (33.0-37.0); RED CELL DISTRIBUTION WIDTH 12.7 % (11.5-14.5)
[2016-09-11 15:01] LABS: CHLORIDE 106 mmol/L (98-107); POTASSIUM 3.5 MMOL/L (3.6-5.0); SODIUM 142 mmol/l (132-148)
[2016-09-11 15:04] LABS: CARBON DIOXIDE 22 mmol/L (22-30); GFR AFRICAN-AMERICAN > 60
[2016-09-11 15:05] LABS: BLOOD UREA NITROGEN 15 mg/dl (9-20); CALCIUM 8.6 mg/dL (8.4-10.2); GLUCOSE,RANDOM 90 mg/dL (75-110)
--- NOTE | 2016-09-11 17:17 | CT ---
PROCEDURE: CT Chest without contrast HISTORY: comparison COMPARISON: Comparison is made to the previous study dated 09/07/2016 TECHNIQUE: Contiguous axial images were obtained through the chest without intravenous contrast enhancement. Sagittal and coronal reconstructions were performed. Radiation dose (DLP): 438.19 mGy-cm. This CT exam was performed using one or more of the following dose reduction techniques: Automated exposure control, adjustment of the mA and/or kV according to patient size, and/or use of iterative reconstruction technique. FINDINGS: LUNGS: Interval improvement in the right lung since the previous exam. Interval significant improvement in the previously seen ground-glass opacities and consolidation in the right lung since the previous study. Small opacities are seen at the left lung base. Paraseptal emphysema and cystic formation are again seen at the upper lobes. MEDIASTINUM: Unremarkable thoracic aorta. No aneurysm. Normal sized heart. Main pulmonary artery unremarkable. No vascular congestion. No lymphadenopathy. PLEURA: Right-sided chest C tube with seen again in place. There is a small approximately 5 percent right-sided pneumothorax. BONES: No fracture. No destructive lesion. UPPER ABDOMEN: Grossly unremarkable. OTHER FINDINGS: None. IMPRESSION: Interval significant improvement in the right lung since the previous exam. Residual small foci of ground-glass opacities especially at the right lower lobe. Interval appearance of small opacity at the left lung base may represent atelectasis. Right-sided chest tube is seen in place. Residual approximately 5 percent right-sided pneumothorax. Otherwise no significant interval change.
[2016-09-11] MEDS: Linezolid 600 mg in D5W 300 ml 600 MG/300 ML BAG IVPB SCH (22:20)
[2016-09-12] MEDS: Sodium Chloride 0.9% 500 ML IV SCH ×5 (04:39→16:27)
[2016-09-12] MEDS: Sodium Chloride 0.9% 1,000 ML IV SCH (04:44)
--- NOTE | 2016-09-12 07:44 | CP.PCM.PN ---
Subjective - Date & Time of Evaluation Date of Evaluation: 09/12/16 Time of Evaluation: 07:40 - Subjective Subjective: Thoracic surgery - Dr. Roach pt S&E. NATI. Pt has mild pain at CT insertion site. He has been OOB and ambulating within the room. He denies any N/V, F/C, SOB/CP. Right CT to waterseal, no airleak. Objective - Vital Signs/Intake and Output Vital Signs (last 24 hours): Temp Pulse Resp BP Pulse Ox 98.5 F 58 L 19 146/77 98 09/12/16 04:47 09/12/16 04:47 09/12/16 04:47 09/12/16 04:47 09/12/16 04:47 - Medications Medications: Current Medications Amlodipine Besylate (Norvasc) 10 mg PO DAILY [facility] Last Admin: 09/11/16 09:06 Dose: 10 mg Enalapril Maleate (Vasotec) 20 mg PO DAILY [facility] Last Admin: 09/11/16 09:07 Dose: 20 mg Hydrochlorothiazide (Hydrodiuril) 25 mg PO DAILY [facility] Last Admin: 09/11/16 09:07 Dose: 25 mg Vancomycin HCl 1 gm/ Sodium (Chloride) 250 mls @ 166.667 mls/hr IVPB DAILY [facility] Last Admin: 09/10/16 08:46 Dose: 166.667 mls/hr Piperacillin Sod/Tazobactam (Sod 2.25 gm/ Sodium Chloride) 100 mls @ 100 mls/ hr IVPB Q6 [facility] Last Admin: 09/12/16 04:23 Dose: 100 mls/hr Sodium Chloride (Sodium Chloride 0.9%) 500 mls @ 120 mls/hr IV .Q4H10M [facility] Last Admin: 09/12/16 04:49 Dose: 120 mls/hr Linezolid (Zyvox 600mg/300ml D5w) 600 mg in 300 mls @ 300 mls/hr IVPB Q12 [facility] Last Admin: 09/11/16 22:20 Dose: 300 mls/hr Metoprolol Tartrate (Lopressor) 50 mg PO DAILY [facility] Last Admin: 09/11/16 09:08 Dose: Not Given Morphine Sulfate (Morphine) 4 mg IVP Q3H PRN PRN Reason: Pain, moderate (4-7) Last Admin: 09/11/16 22:28 Dose: 4 mg - Labs Labs: 09/11/16 14:30 09/11/16 14:30 PT 16.0 SECONDS (9.6-11.2) H 09/07/16 08:15 INR 1.54 (0.92-1.08) H 09/07/16 08:15 APTT 40.6 SECONDS (23.3-32.5) H 09/07/16 08:15 - Constitutional Appears: No Acute Distress - Head Exam Head Exam: ATRAUMATIC, NORMAL INSPECTION, NORMOCEPHALIC - Respiratory Exam Respiratory Exam: NORMAL BREATHING PATTERN. absent: Respiratory Distress Additional comments: R CT to waterseal, dressing changed and is C/D/I, no airleak - Neurological Exam Neurological Exam: Alert, Oriented x3 - Psychiatric Exam Psychiatric exam: Normal Affect, Normal Mood - Skin Skin Exam: Dry, Intact Assessment and Plan - Assessment and Plan (Free Text) Assessment: 46 yo M w/ R spontaneous PTX, s/p Chest tube insertion -Continue CT to waterseal today -Rpt CT yesterday shows significant improvement, initial findings may have been re-expansion pulmonary edema, still some apical PTX present -F/U CXR today -Labs and Cr improved -Encourage OOB/Ambulation and working with Incentive Spirometer Yakov Lima PGY2
[2016-09-12] MEDS: Linezolid 600 mg in D5W 300 ml 600 MG/300 ML BAG IVPB SCH ×2 (09:59→20:57)
[2016-09-12 10:54] LABS: HEMATOCRIT 32.7 % (35.0-51.0); MEAN CELL VOLUME 89.2 fl (80.0-94.0); MEAN CORPUSCULAR HEMOGLOBIN 29.8 pg (27.0-31.0); MEAN CORPUSCULAR HGB CONC 33.5 g/dL (33.0-37.0); RED CELL DISTRIBUTION WIDTH 13.9 % (11.5-14.5); WHITE BLOOD COUNT 4.8 K/uL (4.8-10.8)
--- NOTE | 2016-09-12 12:39 | CP.PCM.PN ---
Subjective - Date & Time of Evaluation Date of Evaluation: 09/12/16 Time of Evaluation: 09:00 - Subjective Subjective: improved blood c/s + staph await ID of organism pneumothorax resolved cont zyvox Objective - Vital Signs/Intake and Output Vital Signs (last 24 hours): Temp Pulse Resp BP Pulse Ox 99 F 57 L 18 146/84 100 09/12/16 12:37 09/12/16 12:37 09/12/16 12:37 09/12/16 12:37 09/12/16 12:37 - Medications Medications: Current Medications Amlodipine Besylate (Norvasc) 10 mg PO DAILY [facility] Last Admin: 09/12/16 09:59 Dose: 10 mg Enalapril Maleate (Vasotec) 20 mg PO DAILY [facility] Last Admin: 09/11/16 09:07 Dose: 20 mg Hydrochlorothiazide (Hydrodiuril) 25 mg PO DAILY [facility] Last Admin: 09/12/16 09:58 Dose: 25 mg Piperacillin Sod/Tazobactam (Sod 2.25 gm/ Sodium Chloride) 100 mls @ 100 mls/ hr IVPB Q6 [facility] Last Admin: 09/12/16 10:01 Dose: 100 mls/hr Sodium Chloride (Sodium Chloride 0.9%) 500 mls @ 120 mls/hr IV .Q4H10M [facility] Last Admin: 09/12/16 04:49 Dose: 120 mls/hr Linezolid (Zyvox 600mg/300ml D5w) 600 mg in 300 mls @ 300 mls/hr IVPB Q12 [facility] Last Admin: 09/12/16 09:59 Dose: 300 mls/hr Metoprolol Tartrate (Lopressor) 50 mg PO DAILY [facility] Last Admin: 09/12/16 09:58 Dose: Not Given Morphine Sulfate (Morphine) 4 mg IVP Q3H PRN PRN Reason: Pain, moderate (4-7) Last Admin: 09/12/16 11:33 Dose: 4 mg - Labs Labs: 09/12/16 09:08 09/11/16 14:30 PT 16.0 SECONDS (9.6-11.2) H 09/07/16 08:15 INR 1.54 (0.92-1.08) H 09/07/16 08:15 APTT 40.6 SECONDS (23.3-32.5) H 09/07/16 08:15 - Constitutional Appears: Non-toxic, Chronically Ill - Head Exam Head Exam: NORMOCEPHALIC - Eye Exam Eye Exam: PERRL - ENT Exam ENT Exam: Mucous Membranes Dry - Neck Exam Neck Exam: absent: Lymphadenopathy - Respiratory Exam Respiratory Exam: Decreased Breath Sounds, Clear to Ausculation Bilateral - Cardiovascular Exam Cardiovascular Exam: REGULAR RHYTHM, +S1, +S2 - GI/Abdominal Exam GI & Abdominal Exam: Distended, Soft. absent: Tenderness - Rectal Exam Rectal Exam: Deferred - Exam Exam: NORMAL INSPECTION - Extremities Exam Extremities Exam: Full ROM Assessment and Plan (1) Acute kidney injury Status: Acute (2) PNA (pneumonia) Status: Acute (3) Pneumothorax Status: Acute (4) HTN (hypertension) Status: Chronic
--- NOTE | 2016-09-12 14:48 | RAD ---
PROCEDURE: CHEST RADIOGRAPH, 1 VIEW HISTORY: comparison, F/U PTX COMPARISON: Comparison chest 09/10/2016. FINDINGS: LUNGS: In situ right-sided chest tube unchanged. . Previously noted right apical pneumothorax. Right apical blebs and small bullous changes poorly seen PLEURA: As above CARDIOVASCULAR: Normal. OSSEOUS STRUCTURES: No significant abnormalities. VISUALIZED UPPER ABDOMEN: Normal. OTHER FINDINGS: None. IMPRESSION: In situ right-sided chest tube. There appears to be a very tiny right apical pneumothorax.
--- NOTE | 2016-09-12 14:52 | CP.PCM.PN ---
Subjective - Date & Time of Evaluation Date of Evaluation: 09/12/16 Time of Evaluation: 09:20 - Subjective Subjective: F/U R Pneumothorax, PNA No SOB , no RUELAS , no cough, minimal pain/discomfort R Chest tube Objective - Vital Signs/Intake and Output Vital Signs (last 24 hours): Temp Pulse Resp BP Pulse Ox 99 F 57 L 18 146/84 100 09/12/16 12:37 09/12/16 12:37 09/12/16 12:37 09/12/16 12:37 09/12/16 12:37 - Medications Medications: Current Medications Amlodipine Besylate (Norvasc) 10 mg PO DAILY [facility] Last Admin: 09/12/16 09:59 Dose: 10 mg Enalapril Maleate (Vasotec) 20 mg PO DAILY [facility] Last Admin: 09/11/16 09:07 Dose: 20 mg Hydrochlorothiazide (Hydrodiuril) 25 mg PO DAILY [facility] Last Admin: 09/12/16 09:58 Dose: 25 mg Piperacillin Sod/Tazobactam (Sod 2.25 gm/ Sodium Chloride) 100 mls @ 100 mls/ hr IVPB Q6 [facility] Last Admin: 09/12/16 10:01 Dose: 100 mls/hr Sodium Chloride (Sodium Chloride 0.9%) 500 mls @ 120 mls/hr IV .Q4H10M [facility] Last Admin: 09/12/16 04:49 Dose: 120 mls/hr Linezolid (Zyvox 600mg/300ml D5w) 600 mg in 300 mls @ 300 mls/hr IVPB Q12 [facility] Last Admin: 09/12/16 09:59 Dose: 300 mls/hr Metoprolol Tartrate (Lopressor) 50 mg PO DAILY [facility] Last Admin: 09/12/16 09:58 Dose: Not Given Morphine Sulfate (Morphine) 4 mg IVP Q3H PRN PRN Reason: Pain, moderate (4-7) Last Admin: 09/12/16 11:33 Dose: 4 mg - Labs Labs: 09/12/16 09:08 09/11/16 14:30 PT 16.0 SECONDS (9.6-11.2) H 09/07/16 08:15 INR 1.54 (0.92-1.08) H 09/07/16 08:15 APTT 40.6 SECONDS (23.3-32.5) H 09/07/16 08:15 - Constitutional Appears: No Acute Distress - Head Exam Head Exam: NORMAL INSPECTION - Eye Exam Eye Exam: PERRL - ENT Exam ENT Exam: Normal Oropharynx - Neck Exam Neck Exam: Normal Inspection - Respiratory Exam Respiratory Exam: Decreased Breath Sounds Additional comments: R CT waterseal., minimal tenderness on palpation to the chest tube area. - Cardiovascular Exam Cardiovascular Exam: REGULAR RHYTHM - GI/Abdominal Exam GI & Abdominal Exam: Soft, Normal Bowel Sounds - Extremities Exam Extremities Exam: Normal Inspection - Back Exam Back Exam: NORMAL INSPECTION - Neurological Exam Neurological Exam: Alert, Oriented x3. absent: Motor Sensory Deficit - Psychiatric Exam Psychiatric exam: Normal Mood - Skin Skin Exam: Warm Assessment and Plan (1) Primary spontaneous pneumothorax Status: Acute (2) PNA (pneumonia) Status: Acute (3) HTN (hypertension) Status: Chronic - Assessment and Plan (Free Text) Assessment: CXR 09/12 shows: R tiny apical ptx, , R Chest tube water seal , PNA improved, Platelet low 118 , one blood C-S Staph coag neg , one sputum AFB (neg) , continue Zosyn , Zyvox , monitor Platelets.
[2016-09-13] MEDS: Sodium Chloride 0.9% 500 ML IV SCH ×3 (08:31→20:30)
[2016-09-13] MEDS: Linezolid 600 mg in D5W 300 ml 600 MG/300 ML BAG IVPB SCH ×2 (08:32→22:05)
[2016-09-13] MEDS ORDERED: Lactulose 10 gm/15 ml Syrup PO PRN (08:51)
--- NOTE | 2016-09-13 10:53 | CP.PCM.PN ---
Subjective - Date & Time of Evaluation Date of Evaluation: 09/13/16 Time of Evaluation: 10:50 - Subjective Subjective: Thoracic Surgery - Dr. Roach Pt S&E. NATI. Pt. denies any chest pain/sob. He has mild discomfort from the chest tube and wishes to leave hospital soon. R CT to waterseal w/ no airleak. Objective - Vital Signs/Intake and Output Vital Signs (last 24 hours): Temp Pulse Resp BP Pulse Ox 98.7 F 68 18 128/74 100 09/13/16 08:15 09/13/16 08:42 09/13/16 08:15 09/13/16 08:42 09/13/16 08:15 Intake and Output: 09/13/16 09/13/16 06:59 18:59 Intake Total 1830 Output Total 0 Balance 1830 - Medications Medications: Current Medications Amlodipine Besylate (Norvasc) 10 mg PO DAILY [facility] Last Admin: 09/13/16 08:33 Dose: 10 mg Docusate Sodium (Colace) 100 mg PO BID [facility] Last Admin: 09/13/16 09:07 Dose: 100 mg Enalapril Maleate (Vasotec) 20 mg PO DAILY [facility] Last Admin: 09/13/16 08:32 Dose: 20 mg Hydrochlorothiazide (Hydrodiuril) 25 mg PO DAILY [facility] Last Admin: 09/13/16 08:33 Dose: 25 mg Sodium Chloride (Sodium Chloride 0.9%) 500 mls @ 120 mls/hr IV .Q4H10M [facility] Last Admin: 09/13/16 08:31 Dose: 120 mls/hr Linezolid (Zyvox 600mg/300ml D5w) 600 mg in 300 mls @ 300 mls/hr IVPB Q12 [facility] Last Admin: 09/13/16 08:32 Dose: 300 mls/hr Lactulose (Enulose) 10 gm PO DAILY PRN PRN Reason: Constipation Metoprolol Tartrate (Lopressor) 50 mg PO DAILY [facility] Last Admin: 09/13/16 08:42 Dose: 50 mg Morphine Sulfate (Morphine) 4 mg IVP Q3H PRN PRN Reason: Pain, moderate (4-7) Last Admin: 09/13/16 08:42 Dose: 4 mg - Labs Labs: 09/12/16 09:08 09/11/16 14:30 PT 16.0 SECONDS (9.6-11.2) H 09/07/16 08:15 INR 1.54 (0.92-1.08) H 09/07/16 08:15 APTT 40.6 SECONDS (23.3-32.5) H 09/07/16 08:15 - Constitutional Appears: No Acute Distress - Head Exam Head Exam: ATRAUMATIC, NORMAL INSPECTION, NORMOCEPHALIC - Eye Exam Eye Exam: Normal appearance - Respiratory Exam Respiratory Exam: NORMAL BREATHING PATTERN. absent: Respiratory Distress Additional comments: R CT to waterseal, no airleak, dressing C/D/I - Neurological Exam Neurological Exam: Alert, Oriented x3 - Psychiatric Exam Psychiatric exam: Normal Affect, Normal Mood - Skin Skin Exam: Dry, Intact Assessment and Plan - Assessment and Plan (Free Text) Assessment: 46 yo M w/ R spontaneous PTX, s/p Chest tube insertion -Continue CT to waterseal -CXR stable, lung re-expanded, poss. small apical ptx -Awaiting final sputum and culture results for the ID workup -Will plan for poss. CT removal Saturday -Encourage OOB/Ambulation and working with Incentive Spirometer Dw Dr. Doc Lima PGY2
--- NOTE | 2016-09-13 12:48 | RAD ---
PROCEDURE: CHEST RADIOGRAPH, 1 VIEW HISTORY: f/u ptx COMPARISON: Comparison is made to the previous yesterday exam. FINDINGS: LUNGS: No significant interval change in the lungs. PLEURA: Right-sided chest tube is seen in place. No evidence of significant residual pneumothorax. CARDIOVASCULAR: Normal. OSSEOUS STRUCTURES: No significant abnormalities. VISUALIZED UPPER ABDOMEN: Normal. OTHER FINDINGS: None. IMPRESSION: No evidence of significant pneumothorax. No significant interval change in the lungs.
--- NOTE | 2016-09-13 13:11 | CP.PCM.PN ---
Subjective - Date & Time of Evaluation Date of Evaluation: 09/13/16 Time of Evaluation: 13:05 - Subjective Subjective: Pt s/e No sob. chest xray-lung reexpanded. chest tube to come our tomorrow. If pneumothorax recurr, two options: talc slurry pleurodesis or resection. I have discussed with the patient both options. a/p: Consider d/c chest tube in am. Objective - Vital Signs/Intake and Output Vital Signs (last 24 hours): Temp Pulse Resp BP Pulse Ox 98.8 F 56 L 18 109/67 98 09/13/16 11:58 09/13/16 11:58 09/13/16 11:58 09/13/16 11:58 09/13/16 11:58 Intake and Output: 09/13/16 09/13/16 06:59 18:59 Intake Total 1830 Output Total 0 Balance 1830 - Medications Medications: Current Medications Amlodipine Besylate (Norvasc) 10 mg PO DAILY [facility] Last Admin: 09/13/16 08:33 Dose: 10 mg Docusate Sodium (Colace) 100 mg PO BID [facility] Last Admin: 09/13/16 09:07 Dose: 100 mg Enalapril Maleate (Vasotec) 20 mg PO DAILY [facility] Last Admin: 09/13/16 08:32 Dose: 20 mg Hydrochlorothiazide (Hydrodiuril) 25 mg PO DAILY [facility] Last Admin: 09/13/16 08:33 Dose: 25 mg Sodium Chloride (Sodium Chloride 0.9%) 500 mls @ 120 mls/hr IV .Q4H10M [facility] Last Admin: 09/13/16 08:31 Dose: 120 mls/hr Linezolid (Zyvox 600mg/300ml D5w) 600 mg in 300 mls @ 300 mls/hr IVPB Q12 [facility] Last Admin: 09/13/16 08:32 Dose: 300 mls/hr Lactulose (Enulose) 10 gm PO DAILY PRN PRN Reason: Constipation Metoprolol Tartrate (Lopressor) 50 mg PO DAILY [facility] Last Admin: 09/13/16 08:42 Dose: 50 mg Morphine Sulfate (Morphine) 4 mg IVP Q3H PRN PRN Reason: Pain, moderate (4-7) Last Admin: 09/13/16 08:42 Dose: 4 mg - Labs Labs: 09/12/16 09:08 09/11/16 14:30 PT 16.0 SECONDS (9.6-11.2) H 09/07/16 08:15 INR 1.54 (0.92-1.08) H 09/07/16 08:15 APTT 40.6 SECONDS (23.3-32.5) H 09/07/16 08:15
--- NOTE | 2016-09-13 14:10 | CP.PCM.PN ---
Subjective - Date & Time of Evaluation Date of Evaluation: 09/13/16 Time of Evaluation: 10:20 - Subjective Subjective: F/U R Pneumothorax Pt with no cough, no A/D, no c/o. Objective - Vital Signs/Intake and Output Vital Signs (last 24 hours): Temp Pulse Resp BP Pulse Ox 98.8 F 56 L 18 109/67 98 09/13/16 11:58 09/13/16 11:58 09/13/16 11:58 09/13/16 11:58 09/13/16 11:58 Intake and Output: 09/13/16 09/13/16 06:59 18:59 Intake Total 1830 Output Total 0 Balance 1830 - Medications Medications: Current Medications Amlodipine Besylate (Norvasc) 10 mg PO DAILY [facility] Last Admin: 09/13/16 08:33 Dose: 10 mg Docusate Sodium (Colace) 100 mg PO BID [facility] Last Admin: 09/13/16 09:07 Dose: 100 mg Enalapril Maleate (Vasotec) 20 mg PO DAILY [facility] Last Admin: 09/13/16 08:32 Dose: 20 mg Hydrochlorothiazide (Hydrodiuril) 25 mg PO DAILY [facility] Last Admin: 09/13/16 08:33 Dose: 25 mg Sodium Chloride (Sodium Chloride 0.9%) 500 mls @ 120 mls/hr IV .Q4H10M [facility] Last Admin: 09/13/16 08:31 Dose: 120 mls/hr Linezolid (Zyvox 600mg/300ml D5w) 600 mg in 300 mls @ 300 mls/hr IVPB Q12 [facility] Last Admin: 09/13/16 08:32 Dose: 300 mls/hr Lactulose (Enulose) 10 gm PO DAILY PRN PRN Reason: Constipation Metoprolol Tartrate (Lopressor) 50 mg PO DAILY [facility] Last Admin: 09/13/16 08:42 Dose: 50 mg Morphine Sulfate (Morphine) 4 mg IVP Q3H PRN PRN Reason: Pain, moderate (4-7) Last Admin: 09/13/16 08:42 Dose: 4 mg - Labs Labs: 09/12/16 09:08 09/11/16 14:30 PT 16.0 SECONDS (9.6-11.2) H 09/07/16 08:15 INR 1.54 (0.92-1.08) H 09/07/16 08:15 APTT 40.6 SECONDS (23.3-32.5) H 09/07/16 08:15 - Constitutional Appears: No Acute Distress - Head Exam Head Exam: NORMAL INSPECTION - Eye Exam Eye Exam: PERRL - ENT Exam ENT Exam: Normal Oropharynx - Neck Exam Neck Exam: Normal Inspection - Respiratory Exam Respiratory Exam: Decreased Breath Sounds (R base) Additional comments: R CT Waterseal, minimal tenderness R chest tube area. - Cardiovascular Exam Cardiovascular Exam: REGULAR RHYTHM - GI/Abdominal Exam GI & Abdominal Exam: Soft, Normal Bowel Sounds - Extremities Exam Extremities Exam: Normal Inspection - Back Exam Back Exam: NORMAL INSPECTION - Neurological Exam Neurological Exam: Alert, Oriented x3. absent: Motor Sensory Deficit - Psychiatric Exam Psychiatric exam: Normal Mood - Skin Skin Exam: Warm Assessment and Plan (1) Primary spontaneous pneumothorax Status: Acute (2) PNA (pneumonia) Status: Acute (3) HTN (hypertension) Status: Chronic - Assessment and Plan (Free Text) Plan: CXR no PTX , Pt seen by Thoracic Surgeon Planing CT to be removed tomorrow. Continue Zyvox, BP meds , Morphine and rest of Tx.
--- NOTE | 2016-09-13 15:51 | CP.PCM.PN ---
Subjective - Date & Time of Evaluation Date of Evaluation: 09/13/16 Time of Evaluation: 09:00 - Subjective Subjective: feels better blood c/s- 1/2 sets positive for coag neg staph may be a contaminant ok to d/c iv antibiotics reculture prn Chest tube to be removed in am Objective - Vital Signs/Intake and Output Vital Signs (last 24 hours): Temp Pulse Resp BP Pulse Ox 98.8 F 56 L 18 109/67 98 09/13/16 11:58 09/13/16 11:58 09/13/16 11:58 09/13/16 11:58 09/13/16 11:58 Intake and Output: 09/13/16 09/13/16 06:59 18:59 Intake Total 1830 Output Total 0 Balance 1830 - Medications Medications: Current Medications Amlodipine Besylate (Norvasc) 10 mg PO DAILY [facility] Last Admin: 09/13/16 08:33 Dose: 10 mg Docusate Sodium (Colace) 100 mg PO BID [facility] Last Admin: 09/13/16 09:07 Dose: 100 mg Enalapril Maleate (Vasotec) 20 mg PO DAILY [facility] Last Admin: 09/13/16 08:32 Dose: 20 mg Hydrochlorothiazide (Hydrodiuril) 25 mg PO DAILY [facility] Last Admin: 09/13/16 08:33 Dose: 25 mg Sodium Chloride (Sodium Chloride 0.9%) 500 mls @ 120 mls/hr IV .Q4H10M [facility] Last Admin: 09/13/16 08:31 Dose: 120 mls/hr Linezolid (Zyvox 600mg/300ml D5w) 600 mg in 300 mls @ 300 mls/hr IVPB Q12 [facility] Last Admin: 09/13/16 08:32 Dose: 300 mls/hr Lactulose (Enulose) 10 gm PO DAILY PRN PRN Reason: Constipation Metoprolol Tartrate (Lopressor) 50 mg PO DAILY [facility] Last Admin: 09/13/16 08:42 Dose: 50 mg Morphine Sulfate (Morphine) 4 mg IVP Q3H PRN PRN Reason: Pain, moderate (4-7) Last Admin: 09/13/16 08:42 Dose: 4 mg - Labs Labs: 09/12/16 09:08 09/11/16 14:30 PT 16.0 SECONDS (9.6-11.2) H 09/07/16 08:15 INR 1.54 (0.92-1.08) H 09/07/16 08:15 APTT 40.6 SECONDS (23.3-32.5) H 09/07/16 08:15 - Constitutional Appears: Non-toxic, Cachectic, Chronically Ill - Head Exam Head Exam: NORMOCEPHALIC - Eye Exam Eye Exam: PERRL. absent: Scleral icterus - ENT Exam ENT Exam: Mucous Membranes Dry, Normal External Ear Exam - Neck Exam Neck Exam: absent: Lymphadenopathy - Respiratory Exam Respiratory Exam: Decreased Breath Sounds, Rhonchi - Cardiovascular Exam Cardiovascular Exam: REGULAR RHYTHM, +S1, +S2 - GI/Abdominal Exam GI & Abdominal Exam: Distended, Soft. absent: Tenderness - Rectal Exam Rectal Exam: Deferred - Exam Exam: NORMAL INSPECTION - Extremities Exam Extremities Exam: absent: Calf Tenderness, Pedal Edema - Back Exam Back Exam: absent: CVA tenderness (L), CVA tenderness (R) Assessment and Plan (1) Acute kidney injury Status: Acute (2) PNA (pneumonia) Status: Acute (3) Pneumothorax Status: Acute (4) HTN (hypertension) Status: Chronic
[2016-09-14] MEDS: Sodium Chloride 0.9% 500 ML IV SCH ×3 (03:10→08:16)
--- NOTE | 2016-09-14 08:11 | CP.PCM.PN ---
Subjective - Date & Time of Evaluation Date of Evaluation: 09/14/16 Time of Evaluation: 08:11 - Subjective Subjective: Thoracic surgery - Dr. Roach Pt S&E. NATI. Pt denies any complaints. Right CT in place, clamped, was unclamped to test for airleak, no leak present. Right CT removed at bedside, pt tolerated removal well. No Chest pain or SOB. Objective - Vital Signs/Intake and Output Vital Signs (last 24 hours): Temp Pulse Resp BP Pulse Ox 98.2 F 61 20 127/72 99 09/14/16 05:00 09/14/16 05:00 09/14/16 05:00 09/14/16 05:00 09/14/16 00:33 - Medications Medications: Current Medications Amlodipine Besylate (Norvasc) 10 mg PO DAILY [facility] Last Admin: 09/13/16 08:33 Dose: 10 mg Docusate Sodium (Colace) 100 mg PO BID [facility] Last Admin: 09/13/16 17:45 Dose: 100 mg Enalapril Maleate (Vasotec) 20 mg PO DAILY [facility] Last Admin: 09/13/16 08:32 Dose: 20 mg Hydrochlorothiazide (Hydrodiuril) 25 mg PO DAILY [facility] Last Admin: 09/13/16 08:33 Dose: 25 mg Sodium Chloride (Sodium Chloride 0.9%) 500 mls @ 120 mls/hr IV .Q4H10M [facility] Last Admin: 09/14/16 05:53 Dose: 120 mls/hr Linezolid (Zyvox 600mg/300ml D5w) 600 mg in 300 mls @ 300 mls/hr IVPB Q12 [facility] Last Admin: 09/13/16 22:05 Dose: 300 mls/hr Lactulose (Enulose) 10 gm PO DAILY PRN PRN Reason: Constipation Metoprolol Tartrate (Lopressor) 50 mg PO DAILY [facility] Last Admin: 09/13/16 08:42 Dose: 50 mg Morphine Sulfate (Morphine) 4 mg IVP Q3H PRN PRN Reason: Pain, moderate (4-7) Last Admin: 09/13/16 22:03 Dose: 4 mg - Labs Labs: 09/12/16 09:08 09/11/16 14:30 PT 16.0 SECONDS (9.6-11.2) H 09/07/16 08:15 INR 1.54 (0.92-1.08) H 09/07/16 08:15 APTT 40.6 SECONDS (23.3-32.5) H 09/07/16 08:15 - Constitutional Appears: No Acute Distress - Head Exam Head Exam: ATRAUMATIC, NORMAL INSPECTION - Eye Exam Eye Exam: EOMI, Normal appearance - Respiratory Exam Respiratory Exam: NORMAL BREATHING PATTERN. absent: Respiratory Distress Additional comments: R CT removed, dressing in place - Neurological Exam Neurological Exam: Alert, Oriented x3 - Psychiatric Exam Psychiatric exam: Normal Affect, Normal Mood - Skin Skin Exam: Dry, Intact Assessment and Plan - Assessment and Plan (Free Text) Assessment: 46 yo M w/ R spontaneous PTX, s/p Chest tube insertion -CT Removed today, Dressing to remain in place for 48hours -Encourage OOB/Incentive Spirometer -F/U CXR 9am -If CXR stable with lung expanded pt would be clear for D/C from surgical standpoint -Care as per Medical team/ID -DW Dr Doc Lima PGY2
[2016-09-14 10:57] LABS: HEMATOCRIT 36.5 % (35.0-51.0); MEAN CELL VOLUME 90.4 fl (80.0-94.0); MEAN CORPUSCULAR HEMOGLOBIN 29.6 pg (27.0-31.0); MEAN CORPUSCULAR HGB CONC 32.7 g/dL (33.0-37.0); WHITE BLOOD COUNT 12.8 K/uL (4.8-10.8)
--- NOTE | 2016-09-14 11:11 | RAD ---
PROCEDURE: CHEST RADIOGRAPH, 1 VIEW HISTORY: S/P Chest tube removal COMPARISON: None available. FINDINGS: LUNGS: No infiltrate or effusion. No definitive evidence of residual right-sided pneumothorax. PLEURA: As above CARDIOVASCULAR: Normal. OSSEOUS STRUCTURES: No significant abnormalities. VISUALIZED UPPER ABDOMEN: Normal. OTHER FINDINGS: None. IMPRESSION: No infiltrate or effusion. No definitive evidence of residual right-sided pneumothorax.
[2016-09-14 11:16] LABS: BLOOD UREA NITROGEN 9 mg/dl (9-20); CALCIUM 9.3 mg/dL (8.4-10.2); CARBON DIOXIDE 27 mmol/L (22-30); CHLORIDE 104 mmol/L (98-107); GFR AFRICAN-AMERICAN > 60; GLUCOSE,RANDOM 106 mg/dL (75-110); POTASSIUM 3.8 MMOL/L (3.6-5.0); SODIUM 143 mmol/l (132-148)
[2016-09-14] MEDS: Linezolid 600 mg in D5W 300 ml 600 MG/300 ML BAG IVPB SCH (11:24)
--- NOTE | 2016-09-14 12:55 | CP.PCM.PN ---
Subjective - Date & Time of Evaluation Date of Evaluation: 09/14/16 Time of Evaluation: 12:53 - Subjective Subjective: Pt s/e. chest tube removed this am, and cxr-no pneumothorax. No sob. a/p: satisfactory recovery. D/c as per Medicine. Objective - Vital Signs/Intake and Output Vital Signs (last 24 hours): Temp Pulse Resp BP Pulse Ox 98.2 F 66 18 118/71 99 09/14/16 12:43 09/14/16 12:43 09/14/16 12:43 09/14/16 12:43 09/14/16 12:43 - Medications Medications: Current Medications Amlodipine Besylate (Norvasc) 10 mg PO DAILY [facility] Last Admin: 09/14/16 08:14 Dose: 10 mg Docusate Sodium (Colace) 100 mg PO BID [facility] Last Admin: 09/14/16 08:14 Dose: 100 mg Enalapril Maleate (Vasotec) 20 mg PO DAILY [facility] Last Admin: 09/14/16 08:14 Dose: 20 mg Hydrochlorothiazide (Hydrodiuril) 25 mg PO DAILY [facility] Last Admin: 09/14/16 08:15 Dose: 25 mg Linezolid (Zyvox 600mg/300ml D5w) 600 mg in 300 mls @ 300 mls/hr IVPB Q12 [facility] Last Admin: 09/14/16 11:24 Dose: 300 mls/hr Lactulose (Enulose) 10 gm PO DAILY PRN PRN Reason: Constipation Metoprolol Tartrate (Lopressor) 50 mg PO DAILY [facility] Last Admin: 09/14/16 08:15 Dose: Not Given Morphine Sulfate (Morphine) 4 mg IVP Q3H PRN PRN Reason: Pain, moderate (4-7) Last Admin: 09/14/16 08:13 Dose: 4 mg - Labs Labs: 09/14/16 10:54 09/14/16 10:54 PT 16.0 SECONDS (9.6-11.2) H 09/07/16 08:15 INR 1.54 (0.92-1.08) H 09/07/16 08:15 APTT 40.6 SECONDS (23.3-32.5) H 09/07/16 08:15
--- NOTE | 2016-09-14 13:26 | CP.PCM.PN ---
Subjective - Date & Time of Evaluation Date of Evaluation: 09/14/16 Time of Evaluation: 08:00 - Subjective Subjective: afebrile awake alert chest tube out NAD Objective - Vital Signs/Intake and Output Vital Signs (last 24 hours): Temp Pulse Resp BP Pulse Ox 98.2 F 66 18 118/71 99 09/14/16 12:43 09/14/16 12:43 09/14/16 12:43 09/14/16 12:43 09/14/16 12:43 - Medications Medications: Current Medications Amlodipine Besylate (Norvasc) 10 mg PO DAILY [facility] Last Admin: 09/14/16 08:14 Dose: 10 mg Docusate Sodium (Colace) 100 mg PO BID [facility] Last Admin: 09/14/16 08:14 Dose: 100 mg Enalapril Maleate (Vasotec) 20 mg PO DAILY [facility] Last Admin: 09/14/16 08:14 Dose: 20 mg Hydrochlorothiazide (Hydrodiuril) 25 mg PO DAILY [facility] Last Admin: 09/14/16 08:15 Dose: 25 mg Linezolid (Zyvox 600mg/300ml D5w) 600 mg in 300 mls @ 300 mls/hr IVPB Q12 [facility] Last Admin: 09/14/16 11:24 Dose: 300 mls/hr Linezolid (Zyvox 600mg/300ml D5w) 600 mg in 300 mls @ 300 mls/hr IVPB Q12 [facility] Lactulose (Enulose) 10 gm PO DAILY PRN PRN Reason: Constipation Metoprolol Tartrate (Lopressor) 50 mg PO DAILY [facility] Last Admin: 09/14/16 08:15 Dose: Not Given Morphine Sulfate (Morphine) 4 mg IVP Q3H PRN PRN Reason: Pain, moderate (4-7) Last Admin: 09/14/16 08:13 Dose: 4 mg - Labs Labs: 09/14/16 10:54 09/14/16 10:54 PT 16.0 SECONDS (9.6-11.2) H 09/07/16 08:15 INR 1.54 (0.92-1.08) H 09/07/16 08:15 APTT 40.6 SECONDS (23.3-32.5) H 09/07/16 08:15 - Constitutional Appears: Non-toxic, Cachectic, Chronically Ill - Head Exam Head Exam: NORMOCEPHALIC - Eye Exam Eye Exam: PERRL. absent: Scleral icterus - ENT Exam ENT Exam: Mucous Membranes Dry, Normal External Ear Exam - Neck Exam Neck Exam: absent: Lymphadenopathy, Thyromegaly - Respiratory Exam Respiratory Exam: Decreased Breath Sounds, Rhonchi - Cardiovascular Exam Cardiovascular Exam: REGULAR RHYTHM, +S1, +S2 - GI/Abdominal Exam GI & Abdominal Exam: Distended, Soft. absent: Tenderness - Rectal Exam Rectal Exam: Deferred - Exam Exam: NORMAL INSPECTION - Extremities Exam Extremities Exam: absent: Pedal Edema - Back Exam Back Exam: absent: CVA tenderness (L), CVA tenderness (R), paraspinal tenderness - Neurological Exam Neurological Exam: Alert, Awake, Oriented x3 Neuro motor strength exam: Left Upper Extremity: 5, Right Upper Extremity: 5, Left Lower Extremity: 5, Right Lower Extremity: 5 - Psychiatric Exam Psychiatric exam: Normal Mood - Skin Skin Exam: Dry Assessment and Plan (1) Acute kidney injury Status: Acute (2) PNA (pneumonia) Status: Acute (3) Pneumothorax Status: Acute (4) HTN (hypertension) Status: Chronic - Assessment and Plan (Free Text) Assessment: cont iv zyvox
--- NOTE | 2016-09-14 17:03 | CP.PCM.PN ---
Subjective - Date & Time of Evaluation Date of Evaluation: 09/14/16 Time of Evaluation: 11:30 - Subjective Subjective: F/U R Pnumothorax. No SOB, no chest congestion, no RUELAS, no cough. Objective - Vital Signs/Intake and Output Vital Signs (last 24 hours): Temp Pulse Resp BP Pulse Ox 98.4 F 64 18 119/71 98 09/14/16 16:01 09/14/16 16:01 09/14/16 16:01 09/14/16 16:01 09/14/16 16:01 - Medications Medications: Current Medications Amlodipine Besylate (Norvasc) 10 mg PO DAILY [facility] Last Admin: 09/14/16 08:14 Dose: 10 mg Docusate Sodium (Colace) 100 mg PO BID [facility] Last Admin: 09/14/16 16:10 Dose: 100 mg Enalapril Maleate (Vasotec) 20 mg PO DAILY [facility] Last Admin: 09/14/16 08:14 Dose: 20 mg Hydrochlorothiazide (Hydrodiuril) 25 mg PO DAILY [facility] Last Admin: 09/14/16 08:15 Dose: 25 mg Linezolid (Zyvox 600mg/300ml D5w) 600 mg in 300 mls @ 300 mls/hr IVPB Q12 [facility] Lactulose (Enulose) 10 gm PO DAILY PRN PRN Reason: Constipation Metoprolol Tartrate (Lopressor) 50 mg PO DAILY [facility] Last Admin: 09/14/16 08:15 Dose: Not Given - Labs Labs: 09/14/16 10:54 09/14/16 10:54 PT 16.0 SECONDS (9.6-11.2) H 09/07/16 08:15 INR 1.54 (0.92-1.08) H 09/07/16 08:15 APTT 40.6 SECONDS (23.3-32.5) H 09/07/16 08:15 - Constitutional Appears: No Acute Distress - Head Exam Head Exam: NORMAL INSPECTION - Eye Exam Eye Exam: PERRL - ENT Exam ENT Exam: Normal Oropharynx - Respiratory Exam Respiratory Exam: Decreased Breath Sounds (R base> L) Additional comments: Minimal tenderness area of previous chest tube. - Cardiovascular Exam Cardiovascular Exam: REGULAR RHYTHM - GI/Abdominal Exam GI & Abdominal Exam: Soft, Normal Bowel Sounds - Extremities Exam Extremities Exam: Normal Inspection - Back Exam Back Exam: NORMAL INSPECTION - Neurological Exam Neurological Exam: Alert, Oriented x3. absent: Motor Sensory Deficit - Psychiatric Exam Psychiatric exam: Normal Mood - Skin Skin Exam: Warm Assessment and Plan (1) Primary spontaneous pneumothorax Status: Acute (2) PNA (pneumonia) Status: Acute (3) HTN (hypertension) Status: Chronic - Assessment and Plan (Free Text) Plan: CXR: No residual PTX, infiltrate resolved, continue IV Zyvox, f/u [employer].
[2016-09-14 19:46] VITALS: O2SAT 100
[2016-09-14] MEDS ORDERED: Linezolid 600 mg in D5W 300 ml 600 MG/300 ML BAG IVPB SCH (21:00)
[2016-09-15 05:22] VITALS: RESP 18
[2016-09-15 08:04] VITALS: BP 126/80; PULSE 78; TEMP 98.7
== END 2016-09-15 09:00 | disposition left against medical advice (07) | DRG 541 ==
LOC: H.ER 07:45 → H.ERHOLD 09:27 → H.TEL 11:24 → H.ICU/CCU 14:44 → H.TEL 09-08 15:29
PROVIDERS: ADMIT Internal Medicine Pulmonary Disease; ATTEND Internal Medicine Pulmonary Disease
PROC: 0W9930Z Drainage of Right Pleural Cavity with Drainage Device, Percutaneous Approach (ICD-10-PCS; principal; 2016-09-07)
DX: J93.11 Primary spontaneous pneumothorax (principal); N17.9 Acute kidney failure, unspecified; J18.9 Pneumonia, unspecified organism; J44.0 Chronic obstructive pulmonary disease with (acute) lower respiratory infection; I10 Essential (primary) hypertension; F17.210 Nicotine dependence, cigarettes, uncomplicated; J98.4 Other disorders of lung